=== PATIENT | female | born 1965 | race Caucasian/White ===

== ENCOUNTER 2021-02-28 17:57 | Inpatient (IN) | payer OTHER, SELFPAY ==
--- NOTE | ~2021-02-28 | CT_ITS ---
EXAMINATION: CTA chest PE protocol DATE: 03/01/2021 01:18 INDICATION: Worsening chest pain and shortness of breath, COVID 19 TECHNIQUE: Computed tomography angiography (CTA) of the chest was performed with 100 mL Omnipaque-350 intravenous contrast timed to evaluate the pulmonary arteries. Coronal maximum intensity projection 3D-reconstructions were created by the technologist. The dose-length product (DLP) was 790.21 mGy-cm. Automated exposure control and iterative reconstruction technique were employed. COMPARISON: None. FINDINGS: The pulmonary arteries are well-opacified. Respiratory motion artifact somewhat limits exam ination. No central pulmonary embolism is identified. There are widespread groundglass and airspace o pacities throughout all lung zones. There is no pleural effusion or pneumothorax. No pathologically e nlarged thoracic lymph nodes are identified. The heart size is normal. The left thyroid lobe is surgi eladia absent. There is mild thoracic spondylosis. The gallbladder is surgically absent. IMPRESSION: 1. No pulmonary embolism identified, sensitivity limited by artifact. 2. Diffuse groundglass and airspace opacities in a pattern consistent with COVID 19 pneumonia. Reviewed, dictated and finalized at location B. IMPRESSION: 1. No pulmonary embolism identified, sensitivity limited by artifact. 2. Diffuse groundglass and airspace opacities in a pattern consistent with COVI D 19 pneumonia.
--- NOTE | ~2021-02-28 | XR_ITS ---
XR chest 1V portable 02/28/2021 18:51 Indication: Covid. Shortness of breath and cough. Procedure: AP portable chest Comparison: The No prior studies for comparison. Findings: Heart size is normal. Patchy bilateral airspace disease, compatible with pneumonia. No sign ificant effusion. No pneumothorax. No acute osseous abnormality. Impression: 1: Patchy bilateral airspace disease, compatible with pneumonia. Reviewed, dictated and finalized at location A. Impression: 1: Patchy bilateral airspace disease, compatible with pneumonia.
--- NOTE | 2021-02-28 18:25 | ECG_ITS ---
Measurements Intervals [place] Rate: 92 P: 8 SD: 136 QRS: 1 QRSD: 79 T: -17 QT: 353 QTc: 438 Interpretive Statements SINUS RHYTHM BORDERLINE T WAVE ABNORMALITY- ANT/INF LEADS BORDERLINE ECG Electronically Signed On 02-28-2021 20:56:44 CDT by Andrea Daily D.O.
[2021-02-28 18:26] VITALS: BP 116/63; PULSE 97; RESP 22; TEMP 36.8; O2SAT 94
[2021-02-28 18:46] LABS: Basophils Percent Auto 0.2 % (0.2-1.2); Eosinophils Percent Auto 0.3 % (0-4.4); Hematocrit 41.5 % (37.0-47.0); Hemoglobin 13.8 g/dL (12.0-15.0); Immature Granulocyte Absolute 0.04 K/mm3 (0.00-0.031); Immature Granulocyte Percent A 0.7 % (0-0.5); Lymphocytes Percent Auto 17.9 % (18.3-44.2); Mean Corpuscular HGB Conc 33.3 g/dl (32-36); Mean Corpuscular Hemoglobin 30.3 pg (26-34); Mean Corpuscular Volume 91.2 fl (80-100); Mean Platelet Volume 8.7 fl (7.4-10.4); Monocytes Absolute Auto 0.6 K/mm3 (0.1-0.6); Monocytes Percent Auto 9.9 % (2.6-8.5); Neutrophils Absolute Auto 4.4 K/mm3 (1.3-6.7); Platelet Count Result 234 k/mm3 (150-375); Red Blood Count 4.55 M/mm3 (4.2-5.4); Red Cell Distribution Width 13.4 % (11.5-14.5); White Blood Count 6.2 K/mm3 (4.5-10.0)
[2021-02-28 18:58] LABS: Alanine Aminotransferase 55 U/L (4-35); Albumin Level 3.6 g/dL (3.5-5.1); Alkaline Phosphatase 96 U/L (38-126); Anion Gap 3 mmol/L (8-16); Aspartate Amino Transferase 88 U/L (14-36); Bilirubin,Total 0.6 mg/dL (0.2-1.3); Blood Urea Nitrogen 13 mg/dL (7-17); Calcium 8.3 mg/dL (8.4-10.2); Carbon Dioxide 32 mmol/L (22-30); Chloride 103 mmol/L (98-107); Estimated CRCL calculation 94 ml/min; Estimated Glomerular Filt Rate > 60; Glucose 97 mg/dL (65-110); Potassium 3.3 mmol/L (3.4-5.0); Sodium 138 mmol/L (137-145)
--- NOTE | 2021-02-28 22:54 | ED.SOB ---
HPI - SOB/Dyspnea General Chief Complaint: Shortness of Breath/Dyspnea Stated Complaint: Covid + 02/20 Low o2 sats Time Seen by Provider: 02/28/21 22:08 History of Present Illness HPI Narrative: Patient presents with shortness of breath. Patient reports she has had cough congestion for the past few days. She reports she was tested for Covid and testing positive. The past couple days reported symptoms are getting worse she reports she feels more short of breath and is having diffuse chest pain. Pain is achy, constant, no radiation, no clear aggravating or alleviating factors. Reports her shortness of breath gets worse with attempting to ambulate. Reports she has been checking her oxygen levels at home and she is in the low 90s so she wanted to come to the ER for evaluation. Related Data Home Medications Medication Instructions Recorded Confirmed atorvastatin 10 mg PO DAILY 03/01/21 03/01/21 ergocalciferol (vitamin D2) 50,000 units PO WEEKLY 03/01/21 03/01/21 levothyroxine 137 mcg PO DAILY 03/01/21 03/01/21 loratadine 10 mg PO DAILY 03/01/21 03/01/21 Allergies Allergy/AdvReac Type Severity Reaction Status Date / Time tuberculin, purified protein Allergy Unknown UNCODED Verified 12/06/18 10:52 deriva Review of Systems Review of Systems: CONSTITUTIONAL: Denies fever, chills, or sweats. EYES: Denies visual changes, redness, or discharge. ENT: Denies rhinorrhea, congestion, sore throat, or otalgia. CARDIOVASCULAR: Denies palpitations, or edema. RESPIRATORY: D reports cough and shortness of breath GASTROINTESTINAL: Denies abdominal pain, nausea, vomiting, or diarrhea. GENITOURINARY: Denies dysuria or hematuria. SKIN: Denies rash or itching. MUSCULOSKELETAL: Denies back pain, joint pain, or myalgia. NEUROLOGIC: Denies headache, numbness, dizziness, or weakness. PSYCHIATRIC: Denies anxiety or depression. All systems reviewed & are unremarkable except as noted in HPI and below PMFSH Family History Family History (Updated 03/01/21 @ 06:43 by Suri New RN) Mother Hypothyroid Father Cancer Social History Social History Smoking packs per day: 0.5 Smoking cigarettes per day: 10.0 Smoking status: Current some day smoker Tobacco type: cigarettes Alcohol intake: current Drinks per week: 1 Substance use: never Spiritual care concerns: No Exam Narrative: GENERAL: Well-appearing, well-nourished, and in no acute distress. HEAD: Normocephalic, atraumatic. EYES: PERRLA and EOMI. ENT: Nares clear, no rhinorrhea or epistaxis. Mucous membranes moist. NECK: Supple. No masses. No JVD CHEST: Clear to auscultation. No respiratory distress. No wheezes rales or rhonchi diminished aeration in all lung gill HEART: Regular rate and rhythm. No murmur heard. Normal peripheral pulses. ABDOMEN: Soft, nontender, nondistended, normal active bowel sounds. EXTREMITIES: Normal range of motion. No edema. SKIN: Warm, dry, no rash. NEURO: No focal deficits. Alert and oriented x3. PSYCH: Normal mood and affect. Course Reevaluation(s) Reevaluation #1: Patient is resting comfortably on 3 L of nasal cannula. Labs and imaging reviewed with patient. Given patient's hypoxia requesting hospitalist consultation for admission further management. Patient comfortable with inpatient plan. Date: 03/01/21 Time: 02:22 Vital Signs Vital signs: Vital Signs Temperature 36.8 C 02/28/21 18:26 Pulse Rate 97 02/28/21 18:26 Respiratory Rate 22 H 02/28/21 18:26 Blood Pressure 116/63 02/28/21 18:26 Pulse Oximetry 94 02/28/21 18:26 Temperature 37.3 C 03/01/21 04:40 Pulse Rate 89 03/01/21 04:40 Respiratory Rate 22 H 03/01/21 04:40 Blood Pressure 120/66 03/01/21 04:40 Pulse Oximetry 91 03/01/21 04:40 MDM - SOB/Dyspnea MDM Narrative Medical decision making narrative: Patient presents with cough shortness of breath tested positive for Covi
--- NOTE | 2021-02-28 23:51 | PC.NURSE ---
pt sating between 89-90%. placed pt on 3L of O2 via nasal cannula.
[2021-02-28 23:52] VITALS: BP 119/85; PULSE 99; RESP 26; O2SAT 95
[2021-03-01] VITALS (7 sets, daily range): BP systolic 120–146; BP diastolic 64–88; PULSE 72–89; RESP 18–23; TEMP 36.6–37.4; O2SAT 90–97; BMI 32.8
[2021-03-01] MEDS: KETOROLAC 15 MG/ML VIAL (*BKC) IV PUSH (00:01)
[2021-03-01] MEDS: SODIUM CHLORIDE 0.9% IV 1,000 ML 999 ML IV CONT (00:01)
--- NOTE | 2021-03-01 04:41 | ADMGEN ---
This patient, Ghada Gaffney, was admitted to [facility] Surg Room 315-01. Patient/family oriented to hospital policies and general routines including ID bracelet, bed and alarms, visiting hours, pain management, procedures, bathroom and other care routines, personal items, smoking policy, room service/diet, and visiting hours. Information on how to activate the Rapid Response Team has been discussed. Patient/Family are encouraged to report perceived risks to care and to ask questions if they do not understand what they are told or what they should do.
[2021-03-01] MEDS: SODIUM CHLORIDE 0.9% IV 1,000 ML 125 ML IV CONT (05:54)
--- NOTE | 2021-03-01 09:04 | PM.IMHP ---
H&P: HPI History of Present Illness Date/Time: 03/01/21 09:04 Chief Complaint: Shortness of breath Narrative: This is a very pleasant 56-year-old woman with past medical history of hypothyroidism, hyperlipidemia, and vitamin-D deficiency, who presented to the emergency department last night for evaluation of shortness of breath. This was accompanied by cough and nasal congestion. Reports that her symptoms started on 02/20. She was tested positive on 02/21. She managed her symptoms at home but for the past 2-3 days her symptoms progressed. Certainly with ambulation she was significantly short of breath per report. On presentation to the emergency department she was noted to have a temperature 36.8?, heart rate of 97, respiratory 22, blood pressure 116/63, pulse oximetry was 94%. However did drop to the 80s with ambulation and she was placed on oxygen by nasal cannula. Her blood work showed WBC 6.2, hemoglobin 13.8, platelets 234, sodium 138, potassium 3.3, chloride 103, bicarb 32, anion gap 3, BUN 13, creatinine 0.7, calcium 8.3, AST 80, ALT 55, albumin 3.6. She otherwise reports no recent changes to her health or medications. She does smoke 1 cigarette daily socially. Review of Systems Review of Systems: All systems reviewed & are unremarkable except as noted in HPI and below PMFSH Past Medical History Medical History Hyperlipidemia Hypothyroidism Seasonal allergies Family History Family History Mother Hypothyroid Father Cancer Social History Social History Smoking packs per day: 0.5 Smoking cigarettes per day: 10.0 Smoking status: Current some day smoker Tobacco type: cigarettes Alcohol intake: current Drinks per week: 1 Substance use: never Spiritual care concerns: No Meds Home Medications and Allergies Home Medications Medication Instructions Recorded Confirmed Type atorvastatin 10 mg PO DAILY 03/01/21 03/01/21 History ergocalciferol (vitamin D2) 50,000 units PO WEEKLY 03/01/21 03/01/21 History levothyroxine 137 mcg PO DAILY 03/01/21 03/01/21 History loratadine 10 mg PO DAILY 03/01/21 03/01/21 History Allergies Allergy/AdvReac Type Severity Reaction Status Date / Time tuberculin, purified protein Allergy Unknown UNCODED Verified 12/06/18 10:52 deriva Vital Signs Vital Signs - 24 hr 02/28/21 18:26 02/28/21 23:52 03/01/21 02:33 Temperature 98.2 F Pulse Rate 97 99 87 Respiratory Rate 22 H 26 H 23 H Blood Pressure 116/63 119/85 134/76 Pulse Oximetry 94 95 97 03/01/21 04:11 03/01/21 04:40 03/01/21 08:00 Temperature 99.1 F 97.9 F Pulse Rate 83 89 72 Respiratory Rate 21 H 22 H 20 Blood Pressure 146/88 H 120/66 133/72 Pulse Oximetry 97 91 90 Exam Narrative: Gen: Alert, NAD Abd: Soft, NT, ND Heart: RRR Lungs: Bilateral upper and lower lobes crackles, faint wheezing Ext: No lower extremity edema Skin: No abnormality Eyes: anicteric ENT: MMM H&P: Results Labs Labs: Short CBC 02/28/21 Range/Units 18:39 WBC 6.2 (4.5-10.0) K/mm3 Hgb 13.8 (12.0-15.0) g/dL Hct 41.5 (37.0-47.0) % Plt Count 234 (150-375) k/mm3 BMP 02/28/21 18:39 Sodium 138 Potassium 3.3 L Chloride 103 Carbon Dioxide 32 H BUN 13 Creatinine 0.70 Glucose 97 Calcium 8.3 L Liver Function 02/28/21 Range/Units 18:39 Total Bilirubin 0.6 (0.2-1.3) mg/dL AST 88 H (14-36) U/L ALT 55 H (4-35) U/L Alkaline Phosphatase 96 (38-126) U/L Albumin 3.6 (3.5-5.1) g/dL Assessment and Plan Assessment and plan (1) Acute hypoxemic respiratory failure: Code(s): J96.01 - Acute respiratory failure with hypoxia Status: Acute Assessment and Plan: In the setting of COVID pneumonia. Oxygen supplementation by nasal cannula and wean as tolerat
[2021-03-01] MEDS: DEXAMETHASONE SOD PHOS INJ 4 MG/ML VIAL 6 MG IV PUSH (09:48)
[2021-03-01] MEDS: ACETAMINOPHEN 325 MG TABLET 650 MG PO ×2 (10:12→22:28)
[2021-03-01] MEDS: ENOXAPARIN 40 MG/0.4 ML SYRINGE SUB-Q (10:44)
[2021-03-01] MEDS: ATORVASTATIN 10 MG TABLET PO (10:45)
[2021-03-01] MEDS: LEVOTHYROXINE SODIUM 112 MCG TABLET PO (10:45)
[2021-03-01] MEDS: LORATADINE 10 MG TABLET PO (10:45)
[2021-03-01] MEDS: LEVOTHYROXINE SODIUM 25 MCG TABLET PO (10:45)
[2021-03-01] MEDS: SODIUM CHLORIDE 0.9% IV 1,000 ML 75 ML IV CONT (17:41)
[2021-03-01] MEDS: CALCIUM CARBONATE (TUMS) 500 MG (200 MG ELEMENTAL) PO (22:28)
[2021-03-02] VITALS: BP 119/59; PULSE 83; RESP 20; TEMP 36.8; O2SAT 94
[2021-03-02 04:00] VITALS: BP 115/56; PULSE 73; RESP 22; TEMP 36.7; O2SAT 92
[2021-03-02] MEDS: LEVOTHYROXINE SODIUM 25 MCG TABLET PO (05:55)
[2021-03-02] MEDS: LEVOTHYROXINE SODIUM 112 MCG TABLET PO (05:56)
[2021-03-02] MEDS: SODIUM CHLORIDE 0.9% IV 1,000 ML 75 ML IV CONT (05:56)
[2021-03-02 07:07] LABS: Alanine Aminotransferase 34 U/L (4-35); Albumin Level 3.1 g/dL (3.5-5.1); Alkaline Phosphatase 74 U/L (38-126); Aspartate Amino Transferase 40 U/L (14-36); Bilirubin,Total 0.6 mg/dL (0.2-1.3)
[2021-03-02 07:15] LABS: Anion Gap 7 mmol/L (8-16); Blood Urea Nitrogen 17 mg/dL (7-17); Calcium 8.7 mg/dL (8.4-10.2); Carbon Dioxide 23 mmol/L (22-30); Chloride 110 mmol/L (98-107); Estimated CRCL calculation 127 ml/min; Estimated Glomerular Filt Rate > 60; Glucose 140 mg/dL (65-110); Potassium 3.5 mmol/L (3.4-5.0); Sodium 140 mmol/L (137-145)
[2021-03-02 08:00] VITALS: BP 121/82; PULSE 73; RESP 24; TEMP 37.1; O2SAT 91
[2021-03-02] MEDS: DEXAMETHASONE SOD PHOS INJ 4 MG/ML VIAL 6 MG IV PUSH (08:57)
[2021-03-02] MEDS: LORATADINE 10 MG TABLET PO (08:57)
[2021-03-02] MEDS: ENOXAPARIN 40 MG/0.4 ML SYRINGE SUB-Q (08:58)
[2021-03-02] MEDS: ATORVASTATIN 10 MG TABLET PO (08:58)
[2021-03-02] MEDS: PANTOPRAZOLE 40 MG TABLET PO ×2 (10:02→22:37)
[2021-03-02] MEDS: guaiFENesin 200 MG/10 ML UDC PO ×3 (10:03→22:37)
--- NOTE | 2021-03-02 11:20 | PM.IMPN ---
Progress Note: A&P Assessment and Plan (1) Acute hypoxemic respiratory failure: Code(s): J96.01 - Acute respiratory failure with hypoxia Status: Acute Assessment and Plan: In the setting of COVID pneumonia. Oxygen supplementation by nasal cannula and wean as tolerated CTA chest 03/01 no evidence of pulmonary embolism, diffuse ground-glass and airspace opacities and pattern consistent with COVID pneumonia Management of COVID as below Antitussives (2) COVID-19: Code(s): U07.1 - COVID-19 Status: Acute Assessment and Plan: Oxygen supplementation by nasal cannula and wean as tolerated COVID Isolation/infection precautions Dexamethasone 03/01- Given symptoms for 10 days, in addition to elevated LFTs, will not initiate remdesivir Monitor respiratory status closely Given she had some wheezing, albuterol inhaler as needed She has not been vaccinated for COVID previously (3) Hypothyroidism: Code(s): E03.9 - Hypothyroidism, unspecified Status: Acute Assessment and Plan: Continue home levothyroxine (4) Hyperlipidemia: Code(s): E78.5 - Hyperlipidemia, unspecified Status: Acute Assessment and Plan: Continue statin (5) Nicotine dependence: Code(s): F17.200 - Nicotine dependence, unspecified, uncomplicated Status: Acute Assessment and Plan: Smoking cessation discussed in detail. Subjective Date/time seen: 03/02/21 11:20 Oxygen requirement is stable at 2 liters/minute, however she has been having fairly rigorous cough that is frequent. Otherwise hemodynamically stable and afebrile. Review of Systems Review of Systems: All systems reviewed & are unremarkable except as noted in HPI and below Exam Narrative: Gen: Alert, NAD Abd: Soft, NT, ND Heart: RRR Lungs: Faint diffuse wheezing Ext: No lower extremity edema Objective Data Vital Signs Vital Signs: Vital Signs - 24 hr 03/01/21 12:00 03/01/21 16:00 03/01/21 20:00 Temperature 98.3 F 98.2 F 99.3 F Pulse Rate 89 86 87 Respiratory Rate 20 18 20 Blood Pressure 131/87 134/78 120/64 Pulse Oximetry 90 90 92 03/02/21 00:00 03/02/21 04:00 03/02/21 08:00 Temperature 98.3 F 98.0 F 98.7 F Pulse Rate 83 73 73 Respiratory Rate 20 22 H 24 H Blood Pressure 119/59 L 115/56 L 121/82 Pulse Oximetry 94 92 91 Intake/Output Intake/Output: Intake & Output 02/27/21 02/28/21 03/01/21 03/02/21 23:59 23:59 23:59 23:59 Intake Total 3690 1300 Output Total 100 Balance 3590 1300 Meds/Results Medications: Active Medications Generic Name Dose Route Start Last Admin Trade Name Freq PRN Reason Stop Dose Admin Acetaminophen 650 mg 03/01/21 09:45 03/01/21 22:28 Acetaminophen 325 Mg Tablet PO 650 mg Q4H PRN Administration Headache Albuterol 2 puff 03/01/21 09:13 Albuterol Sulfate (*Sp) Aerosol 1 Puff INHALATION Q6HRT PRN Shortness Of Breath Atorvastatin Calcium 10 mg 03/01/21 09:00 03/02/21 08:58 Atorvastatin 10 Mg Tablet PO 10 mg DAILY JUN Administration Benzonatate 200 mg 03/02/21 13:00 Benzonatate 100 Mg Capsule PO TID JUN Calcium Carbonate 200 mg 03/01/21 21:53 03/01/21 22:28 Calcium Carbonate (Tums) 500 Mg (200 Mg Elemental) PO 200 mg Q6H PRN Administration Indigestion Dexamethasone Sodium Phosphate 6 mg 03/01/21 09:00 03/02/21 08:57 Dexamethasone Sod Phos Inj 4 Mg/Ml Vial IV PUSH 03/10/21 09:01 6 mg DAILY JUN Administration Enoxaparin Sodium 40 mg 03/01/21 09:55 03/02/21 08:58 Enoxaparin 40 Mg/0.4 Ml Syringe SUB-Q 40 mg DAILY JUN Administration Guaifenesin 200 mg 03/02/21 09:15 03/02/21 10:03 Guaifenesin 200 Mg/10 Ml Udc PO 200 mg Q4H PRN Administration Cough Sodium Chloride 1,000 mls @ 75 mls/hr 03/01/21 03:10 03/02/21 05:56 Normal Saline Iv IV CONT 75 mls/hr .[id number] JUN Administration Levothyroxine Sodium 112 mcg 03/01/21 10:00 03/02/21
[2021-03-02 12:00] VITALS: BP 122/70; PULSE 87; RESP 24; TEMP 36.2; O2SAT 92
[2021-03-02] MEDS: BENZONATATE 100 MG CAPSULE 200 MG PO ×2 (12:37→17:10)
[2021-03-02 16:00] VITALS: BP 132/76; PULSE 86; RESP 24; TEMP 36.8; O2SAT 90
[2021-03-02 20:50] VITALS: BP 130/87; PULSE 77; RESP 18; TEMP 36.8; O2SAT 90
[2021-03-03] VITALS: BP 117/66; PULSE 67; RESP 18; TEMP 36.9; O2SAT 93
[2021-03-03 06:00] VITALS: BP 118/70; PULSE 67; RESP 16; TEMP 36.2; O2SAT 94
[2021-03-03] MEDS: LEVOTHYROXINE SODIUM 25 MCG TABLET PO (06:07)
[2021-03-03] MEDS: LEVOTHYROXINE SODIUM 112 MCG TABLET PO (06:07)
[2021-03-03 06:40] LABS: Anion Gap 7 mmol/L (8-16); Blood Urea Nitrogen 17 mg/dL (7-17); Calcium 8.4 mg/dL (8.4-10.2); Carbon Dioxide 26 mmol/L (22-30); Chloride 109 mmol/L (98-107); Estimated CRCL calculation 108 ml/min; Estimated Glomerular Filt Rate > 60; Glucose 122 mg/dL (65-110); Potassium 3.6 mmol/L (3.4-5.0); Sodium 142 mmol/L (137-145)
[2021-03-03 08:00] VITALS: BP 128/81; PULSE 62; RESP 18; TEMP 36.7; O2SAT 96
--- NOTE | 2021-03-03 08:55 | PM.IMPN ---
Progress Note: A&P Assessment and Plan (1) Acute hypoxemic respiratory failure: Code(s): J96.01 - Acute respiratory failure with hypoxia Status: Acute Assessment and Plan: In the setting of COVID pneumonia. Oxygen supplementation by nasal cannula and wean as tolerated CTA chest 03/01 no evidence of pulmonary embolism, diffuse ground-glass and airspace opacities and pattern consistent with COVID pneumonia Management of COVID as below Antitussives (2) COVID-19: Code(s): U07.1 - COVID-19 Status: Acute Assessment and Plan: Oxygen supplementation by nasal cannula and wean as tolerated COVID Isolation/infection precautions Dexamethasone 03/01- Given symptoms for 10 days, in addition to elevated LFTs, will not initiate remdesivir Monitor respiratory status closely Given she had some wheezing, albuterol inhaler as needed She has not been vaccinated for COVID previously (3) Hypothyroidism: Code(s): E03.9 - Hypothyroidism, unspecified Status: Acute Assessment and Plan: Continue home levothyroxine (4) Hyperlipidemia: Code(s): E78.5 - Hyperlipidemia, unspecified Status: Acute Assessment and Plan: Continue statin (5) Nicotine dependence: Code(s): F17.200 - Nicotine dependence, unspecified, uncomplicated Status: Acute Assessment and Plan: Smoking cessation discussed in detail. Subjective Date/time seen: 03/03/21 08:55 Cough is intermittent, shortness of breath persistent but improved, currently on 1 L of oxygen by nasal cannula. Feels soreness in her throat and upper airways. Hemodynamically stable. Afebrile. Review of Systems Review of Systems: All systems reviewed & are unremarkable except as noted in HPI and below Exam Narrative: Gen: Alert, NAD Abd: Soft, NT, ND Heart: RRR Lungs: CTAB Ext: No lower extremity edema Objective Data Vital Signs Vital Signs: Vital Signs - 24 hr 03/02/21 12:00 03/02/21 16:00 03/02/21 20:50 Temperature 97.1 F L 98.2 F 98.3 F Pulse Rate 87 86 77 Respiratory Rate 24 H 24 H 18 Blood Pressure 122/70 132/76 130/87 Pulse Oximetry 92 90 90 03/03/21 00:00 03/03/21 06:00 Temperature 98.4 F 97.2 F L Pulse Rate 67 67 Respiratory Rate 18 16 Blood Pressure 117/66 118/70 Pulse Oximetry 93 94 Intake/Output Intake/Output: Intake & Output 02/28/21 03/01/21 03/02/21 03/03/21 23:59 23:59 23:59 23:59 Intake Total 3690 3390 400 Output Total 100 Balance 3590 3390 400 Meds/Results Medications: Active Medications Generic Name Dose Route Start Last Admin Trade Name Freq PRN Reason Stop Dose Admin Acetaminophen 650 mg 03/01/21 09:45 03/01/21 22:28 Acetaminophen 325 Mg Tablet PO 650 mg Q4H PRN Administration Headache Albuterol 2 puff 03/01/21 09:13 Albuterol Sulfate (*Sp) Aerosol 1 Puff INHALATION Q6HRT PRN Shortness Of Breath Atorvastatin Calcium 10 mg 03/01/21 09:00 03/02/21 08:58 Atorvastatin 10 Mg Tablet PO 10 mg DAILY JUN Administration Benzonatate 200 mg 03/02/21 13:00 03/02/21 17:10 Benzonatate 100 Mg Capsule PO 200 mg TID JUN Administration Calcium Carbonate 200 mg 03/01/21 21:53 03/01/21 22:28 Calcium Carbonate (Tums) 500 Mg (200 Mg Elemental) PO 200 mg Q6H PRN Administration Indigestion Dexamethasone Sodium Phosphate 6 mg 03/01/21 09:00 03/02/21 08:57 Dexamethasone Sod Phos Inj 4 Mg/Ml Vial IV PUSH 03/10/21 09:01 6 mg DAILY JUN Administration Enoxaparin Sodium 40 mg 03/01/21 09:55 03/02/21 08:58 Enoxaparin 40 Mg/0.4 Ml Syringe SUB-Q 40 mg DAILY JUN Administration Guaifenesin 200 mg 03/02/21 09:15 03/02/21 22:37 Guaifenesin 200 Mg/10 Ml Udc PO 200 mg Q4H PRN Administration Cough Levothyroxine Sodium 112 mcg 03/01/21 10:00 03/03/21 06:07 Levothyroxine Sodium 112 Mcg Tablet PO 112 mcg DAILY@0630 JUN Administration Levothyroxine Sodium 25 mcg 0
[2021-03-03] MEDS: DEXAMETHASONE SOD PHOS INJ 4 MG/ML VIAL 6 MG IV PUSH (10:48)
[2021-03-03] MEDS: LORATADINE 10 MG TABLET PO (10:49)
[2021-03-03] MEDS: ATORVASTATIN 10 MG TABLET PO (10:49)
[2021-03-03] MEDS: PANTOPRAZOLE 40 MG TABLET PO (10:49)
[2021-03-03] MEDS: ENOXAPARIN 40 MG/0.4 ML SYRINGE SUB-Q (10:49)
[2021-03-03] MEDS: BENZONATATE 100 MG CAPSULE 200 MG PO ×3 (10:49→18:09)
[2021-03-03] MEDS: guaiFENesin 200 MG/10 ML UDC PO ×2 (10:50→18:10)
[2021-03-03 12:00] VITALS: BP 114/71; PULSE 70; RESP 18; TEMP 36.7; O2SAT 94
[2021-03-03 16:00] VITALS: BP 115/73; PULSE 72; RESP 20; TEMP 36.6; O2SAT 95
[2021-03-03 20:00] VITALS: BP 135/92; PULSE 65; RESP 18; TEMP 36.7; O2SAT 92
[2021-03-04] VITALS (9 sets, daily range): BP systolic 126–135; BP diastolic 63–82; PULSE 55–68; RESP 18–20; TEMP 36.2–36.9; O2SAT 91–95
[2021-03-04 06:33] LABS: Estimated CRCL calculation 108 ml/min; Estimated Glomerular Filt Rate > 60
[2021-03-04] MEDS: LEVOTHYROXINE SODIUM 25 MCG TABLET PO (07:00)
[2021-03-04] MEDS: LEVOTHYROXINE SODIUM 112 MCG TABLET PO (07:00)
--- NOTE | 2021-03-04 09:35 | PM.IMPN ---
Progress Note: A&P Assessment and Plan (1) Acute hypoxemic respiratory failure: Code(s): J96.01 - Acute respiratory failure with hypoxia Status: Acute Assessment and Plan: In the setting of COVID pneumonia. Oxygen supplementation by nasal cannula and wean as tolerated CTA chest 03/01 no evidence of pulmonary embolism, diffuse ground-glass and airspace opacities and pattern consistent with COVID pneumonia Management of COVID as below Antitussives (2) COVID-19: Code(s): U07.1 - COVID-19 Status: Acute Assessment and Plan: Oxygen supplementation by nasal cannula and wean as tolerated COVID Isolation/infection precautions Dexamethasone 03/01- Given symptoms for 10 days, in addition to elevated LFTs, will not initiate remdesivir Monitor respiratory status closely Given she had some wheezing, albuterol inhaler as needed She has not been vaccinated for COVID (3) Hypothyroidism: Code(s): E03.9 - Hypothyroidism, unspecified Status: Acute Assessment and Plan: Continue home levothyroxine (4) Hyperlipidemia: Code(s): E78.5 - Hyperlipidemia, unspecified Status: Acute Assessment and Plan: Continue statin (5) Nicotine dependence: Code(s): F17.200 - Nicotine dependence, unspecified, uncomplicated Status: Acute Assessment and Plan: Smoking cessation discussed in detail. Subjective Date/time seen: 03/04/21 09:35 She reports persistent cough, slightly improved. Breathing is about the same. She is on 2 L of oxygen by nasal cannula. Hemodynamically stable. Afebrile. Exam Narrative: Gen: Alert, NAD Abd: Soft, NT, ND Heart: RRR Lungs: CTAB Ext: No lower extremity edema Objective Data Vital Signs Vital Signs: Vital Signs - 24 hr 03/03/21 12:00 03/03/21 16:00 03/03/21 20:00 Temperature 98.0 F 97.9 F 98.1 F Pulse Rate 70 72 65 Respiratory Rate 18 20 18 Blood Pressure 114/71 115/73 135/92 H Pulse Oximetry 94 95 92 03/04/21 00:00 03/04/21 04:00 03/04/21 08:00 Temperature 97.9 F 97.1 F L 97.8 F Pulse Rate 64 60 60 Respiratory Rate 18 18 18 Blood Pressure 126/82 135/74 133/81 Pulse Oximetry 91 95 93 Intake/Output Intake/Output: Intake & Output 03/01/21 03/02/21 03/03/21 03/04/21 23:59 23:59 23:59 23:59 Intake Total 3690 3390 1860 200 Output Total 100 Balance 3590 3390 1860 200 Meds/Results Medications: Active Medications Generic Name Dose Route Start Last Admin Trade Name Freq PRN Reason Stop Dose Admin Acetaminophen 650 mg 03/01/21 09:45 03/01/21 22:28 Acetaminophen 325 Mg Tablet PO 650 mg Q4H PRN Administration Headache Albuterol 2 puff 03/01/21 09:13 Albuterol Sulfate (*Sp) Aerosol 1 Puff INHALATION Q6HRT PRN Shortness Of Breath Atorvastatin Calcium 10 mg 03/01/21 09:00 03/03/21 10:49 Atorvastatin 10 Mg Tablet PO 10 mg DAILY JUN Administration Benzonatate 200 mg 03/02/21 13:00 03/03/21 18:09 Benzonatate 100 Mg Capsule PO 200 mg TID JUN Administration Calcium Carbonate 200 mg 03/01/21 21:53 03/01/21 22:28 Calcium Carbonate (Tums) 500 Mg (200 Mg Elemental) PO 200 mg Q6H PRN Administration Indigestion Dexamethasone Sodium Phosphate 6 mg 03/01/21 09:00 03/03/21 10:48 Dexamethasone Sod Phos Inj 4 Mg/Ml Vial IV PUSH 03/10/21 09:01 6 mg DAILY JUN Administration Enoxaparin Sodium 40 mg 03/01/21 09:55 03/03/21 10:49 Enoxaparin 40 Mg/0.4 Ml Syringe SUB-Q 40 mg DAILY JUN Administration Guaifenesin 200 mg 03/02/21 09:15 03/03/21 18:10 Guaifenesin 200 Mg/10 Ml Udc PO 200 mg Q4H PRN Administration Cough Levothyroxine Sodium 112 mcg 03/01/21 10:00 03/04/21 07:00 Levothyroxine Sodium 112 Mcg Tablet PO 112 mcg DAILY@0630 JUN Administration Levothyroxine Sodium 25 mcg 03/01/21 10:05 03/04/21 07:00 Levothyroxine Sodium 25 Mcg Tablet PO 25 mcg DAILY@0630 JUN Administration Martha
[2021-03-04] MEDS: guaiFENesin 200 MG/10 ML UDC PO (10:19)
[2021-03-04] MEDS: DEXAMETHASONE SOD PHOS INJ 4 MG/ML VIAL 6 MG IV PUSH (10:19)
[2021-03-04] MEDS: LORATADINE 10 MG TABLET PO (10:20)
[2021-03-04] MEDS: PANTOPRAZOLE 40 MG TABLET PO (10:20)
[2021-03-04] MEDS: BENZONATATE 100 MG CAPSULE 200 MG PO ×3 (10:20→17:23)
[2021-03-04] MEDS: ATORVASTATIN 10 MG TABLET PO (10:20)
[2021-03-04] MEDS: ENOXAPARIN 40 MG/0.4 ML SYRINGE SUB-Q (10:20)
[2021-03-04] MEDS: guaiFENesin 12 HR 600 MG TABCR PO (15:53)
[2021-03-05] VITALS: BP 132/69; PULSE 58; RESP 20; TEMP 37.1; O2SAT 94
[2021-03-05 04:00] VITALS: BP 144/89; PULSE 57; RESP 20; TEMP 37; O2SAT 93
[2021-03-05] MEDS: LEVOTHYROXINE SODIUM 112 MCG TABLET PO (06:50)
[2021-03-05] MEDS: LEVOTHYROXINE SODIUM 25 MCG TABLET PO (06:50)
[2021-03-05 07:31] LABS: Estimated CRCL calculation 108 ml/min; Estimated Glomerular Filt Rate > 60
[2021-03-05 08:00] VITALS: BP 139/89; PULSE 59; RESP 18; TEMP 36.5; O2SAT 94
[2021-03-05] MEDS: ENOXAPARIN 40 MG/0.4 ML SYRINGE SUB-Q (08:26)
[2021-03-05] MEDS: DEXAMETHASONE SOD PHOS INJ 4 MG/ML VIAL 6 MG IV PUSH (08:26)
[2021-03-05] MEDS: LORATADINE 10 MG TABLET PO (08:27)
[2021-03-05] MEDS: BENZONATATE 100 MG CAPSULE 200 MG PO (08:27)
[2021-03-05] MEDS: ATORVASTATIN 10 MG TABLET PO (08:27)
[2021-03-05] MEDS: PANTOPRAZOLE 40 MG TABLET PO (08:28)
[2021-03-05] MEDS: guaiFENesin 200 MG/10 ML UDC PO (08:28)
--- NOTE | 2021-03-05 10:34 | PM.IMPN ---
Progress Note: A&P Assessment and Plan (1) Acute hypoxemic respiratory failure: Code(s): J96.01 - Acute respiratory failure with hypoxia Status: Acute Assessment and Plan: In the setting of COVID pneumonia. Oxygen supplementation by nasal cannula and wean as tolerated CTA chest 03/01 no evidence of pulmonary embolism, diffuse ground-glass and airspace opacities and pattern consistent with COVID pneumonia Management of COVID as below Antitussives (2) COVID-19: Code(s): U07.1 - COVID-19 Status: Acute Assessment and Plan: Day 5 dexamethasone holding remdesivir in setting of >10 days since s/x onset and transaminitis Oxygen supplementation by nasal cannula and wean as tolerated COVID Isolation/infection precautions Given she had some wheezing, albuterol inhaler as needed She has not been vaccinated for COVID (3) Hypothyroidism: Code(s): E03.9 - Hypothyroidism, unspecified Status: Acute Assessment and Plan: Continue home levothyroxine (4) Hyperlipidemia: Code(s): E78.5 - Hyperlipidemia, unspecified Status: Acute Assessment and Plan: Continue statin (5) Nicotine dependence: Code(s): F17.200 - Nicotine dependence, unspecified, uncomplicated Status: Acute Assessment and Plan: Smoking cessation discussed in detail. Additional Plan Code status: Full code DVT prophylaxis: Enoxaparin continue steroids, attempt to wean off O2 repeat labs today Time Spent With Patient Time with patient: less than 15 minutes Subjective Date/time seen: 03/05/21 10:34 no acute medical complaints Review of Systems Review of Systems: All systems reviewed & are unremarkable except as noted in HPI and below Exam Const: General: no acute distress Neck: Neck: no JVD Resp: Other: require 2L NC to breathe comfortably Cardio: Rate: regular rate Rhythm: regular rhythm GI: GI Palp: Yes Soft to palpation and No Tenderness to palpation present (GI) Objective Data Vital Signs Vital Signs: Vital Signs - 24 hr 03/04/21 12:00 03/04/21 15:30 03/04/21 16:00 Temperature 98.4 F 97.8 F Pulse Rate 55 L 68 Respiratory Rate 18 18 Blood Pressure 126/63 131/80 Pulse Oximetry 95 93 92 03/04/21 17:30 03/04/21 20:00 03/05/21 00:00 Temperature 98.1 F 98.7 F Pulse Rate 66 58 L Respiratory Rate 20 20 Blood Pressure 133/81 132/69 Pulse Oximetry 94 93 94 03/05/21 04:00 03/05/21 08:00 Temperature 98.6 F 97.7 F Pulse Rate 57 L 59 L Respiratory Rate 20 18 Blood Pressure 144/89 H 139/89 Pulse Oximetry 93 94 Intake/Output Intake/Output: Intake & Output 03/02/21 03/03/21 03/04/21 03/05/21 23:59 23:59 23:59 23:59 Intake Total 3390 1860 1820 810 Balance 3390 1860 1820 810 Meds/Results Medications: Active Medications Generic Name Dose Route Start Last Admin Trade Name Freq PRN Reason Stop Dose Admin Acetaminophen 650 mg 03/01/21 09:45 03/01/21 22:28 Acetaminophen 325 Mg Tablet PO 650 mg Q4H PRN Administration Headache Albuterol 2 puff 03/01/21 09:13 Albuterol Sulfate (*Sp) Aerosol 1 Puff INHALATION Q6HRT PRN Shortness Of Breath Atorvastatin Calcium 10 mg 03/01/21 09:00 03/05/21 08:27 Atorvastatin 10 Mg Tablet PO 10 mg DAILY JUN Administration Benzonatate 200 mg 03/02/21 13:00 03/05/21 08:27 Benzonatate 100 Mg Capsule PO 200 mg TID JUN Administration Calcium Carbonate 200 mg 03/01/21 21:53 03/01/21 22:28 Calcium Carbonate (Tums) 500 Mg (200 Mg Elemental) PO 200 mg Q6H PRN Administration Indigestion Dexamethasone Sodium Phosphate 6 mg 03/01/21 09:00 03/05/21 08:26 Dexamethasone Sod Phos Inj 4 Mg/Ml Vial IV PUSH 03/10/21 09:01 6 mg DAILY JUN Administration Enoxaparin Sodium 40 mg 03/01/21 09:55 03/05/21 08:26 Enoxaparin 40 Mg/0.4 Ml Syringe SUB-Q 40 mg DAILY JUN Administration Guaifenesin 200 mg 03/02/21 09:15 03/05/21 08:28 Gu
[2021-03-05 10:50] LABS: Basophils Percent Auto 0.3 % (0.2-1.2); Hematocrit 39.2 % (37.0-47.0); Hemoglobin 12.9 g/dL (12.0-15.0); Immature Granulocyte Absolute 0.48 K/mm3 (0.00-0.031); Immature Granulocyte Percent A 4.4 % (0-0.5); Lymphocytes Absolute Auto 1.95 K/mm3 (0.9-3.2); Mean Corpuscular HGB Conc 32.9 g/dl (32-36); Mean Corpuscular Hemoglobin 30.4 pg (26-34); Mean Corpuscular Volume 92.2 fl (80-100); Mean Platelet Volume 8.7 fl (7.4-10.4); Monocytes Absolute Auto 0.9 K/mm3 (0.1-0.6); Monocytes Percent Auto 8.4 % (2.6-8.5); Neutrophils Absolute Auto 7.5 K/mm3 (1.3-6.7); Neutrophils Percent Auto 68.9 % (45.5-73.1); Nucleated Red Blood Cells Perc 0.4 % (0.0-0.2); Platelet Count Result 488 k/mm3 (150-375); Red Blood Count 4.25 M/mm3 (4.2-5.4); Red Cell Distribution Width 13.2 % (11.5-14.5); White Blood Count 10.8 K/mm3 (4.5-10.0)
[2021-03-05 11:01] LABS: Alanine Aminotransferase 104 U/L (4-35); Albumin Level 3.3 g/dL (3.5-5.1); Alkaline Phosphatase 72 U/L (38-126); Anion Gap 10 mmol/L (8-16); Aspartate Amino Transferase 60 U/L (14-36); Bilirubin,Total 0.5 mg/dL (0.2-1.3); Blood Urea Nitrogen 16 mg/dL (7-17); Calcium 8.9 mg/dL (8.4-10.2); Carbon Dioxide 26 mmol/L (22-30); Chloride 107 mmol/L (98-107); Estimated CRCL calculation 108 ml/min; Estimated Glomerular Filt Rate > 60; Glucose 87 mg/dL (65-110); Potassium 4.3 mmol/L (3.4-5.0); Sodium 143 mmol/L (137-145)
--- NOTE | 2021-03-18 18:42 | PM.DS ---
DS: Admitting Diagnosis Discharge Date 03/05/21 Admitting Diagnosis COVID pneumonia DS: Discharge Diagnosis Discharge Diagnosis (1) COVID-19: Code(s): U07.1 - COVID-19 Status: Acute DS: Summary Hospital Course Hospital Course: patient is a 56-year-old lady with hypothyroidism dyslipidemia and GERD presenting with respiratory failure. Found to have COVID pneumonia. However since it was greater than 10 days since symptoms began, she was outside of the window to treat with remdesivir. Did complete 5 days of steroids, patient respiratory symptoms feeling much better. The patient deemed safe to discharge home, with appropriate social distancing guidelines, and return if symptoms return or worsen. Status at Discharge Overall status at discharge: patient is progressing back to baseline Time Spent with Patient Time attestation: Total time spent providing and/or coordinating discharge services: Time spent: Less than 30 minutes Exam Const: General: no acute distress Neck: Neck: no JVD Resp: Effort & Inspection: normal respiratory effort Auscultation: clear to auscultation bilaterally Cardio: Rate: regular rate Rhythm: regular rhythm GI: GI Palp: Yes Soft to palpation and No Tenderness to palpation present (GI) Discharge Plan Discharge Attending physician on discharge: Josesito Mayo Consulting providers: Lamont aLu ; Errol Rapp ; Andrea Daily Discharging Clinician: Josesito Mayo Patient Disposition: Home, Self-Care Activity: may shower and as tolerated Diet: heart healthy, low cholesterol and low fat Patient Instructions: Antibiotic Form, How to Stop Smoking (DC), COVID-19 (Coronavirus Disease 2019) (DC), COVID-19 and Chronic Health Conditions (DC) Stand Alone Forms: General Discharge Information Follow-up/Referrals: Luisa,Flakito Escamilla MD [Primary Care Provider] - Call for Appointment Discharge Medications: Continued levothyroxine 137 mcg Tablet 137 mcg PO DAILY RF: 0 atorvastatin 10 mg Tablet 10 mg PO DAILY RF: 0 loratadine 10 mg Tablet 10 mg PO DAILY RF: 0 ergocalciferol (vitamin D2) 50,000 units PO WEEKLY RF: 0 omeprazole 20 mg Capsule,Delayed Release(Dr/Ec) 20 mg PO DAILY RF: 0 Date of admission: 03/02/21 10:00 Primary Care Provider: Luisa,Runda A. Admitting Provider: Lenny Frank Attending physician on admission: Zachary Lopes Condition: Guarded Prognosis
== END 2021-03-05 12:30 | disposition home or self-care (01) | DRG 177 ==
LOC: ANHED 03-01 02:54 → ANH3MEDSUR 03-01 04:03
PROVIDERS: Family Medicine; Internal Medicine; Admitting Provider Internal Medicine; Emergency Provider Emergency Medicine; PCP Family Medicine; Visit Provider Internal Medicine Nephrology
DX: U07.1 COVID-19 (principal); J12.82 Pneumonia due to coronavirus disease 2019; J96.01 Acute respiratory failure with hypoxia; R74.01 Elevation of levels of liver transaminase levels; F17.210 Nicotine dependence, cigarettes, uncomplicated; E03.9 Hypothyroidism, unspecified; E78.5 Hyperlipidemia, unspecified; E55.9 Vitamin D deficiency, unspecified; K21.9 Gastro-esophageal reflux disease without esophagitis; Z79.899 Other long term (current) drug therapy
CPT/HCPCS: 36415; 71045; 71275; 80048; 80053; 80076; 82565; 85025; 93005; 96361; 96365; 96372; 96374; 96375; 99285; A9270; G0378; J0131; J1100; J1650; J1885; J7030; Q9967

== ENCOUNTER → 2021-12-27 12:14 | Outpatient (CLI) | payer OTHER, SELFPAY ==
--- NOTE | ~2021-12-27 | DEXA_ITS ---
Bone Density Report Name: CAL RUTLEDGE Age: 56 Sex: Female Ethnicity: White Date of : 1965 Indication: postmenopausal; screening for osteoporosis; height loss; inflammatory bowel disease; hysterectomy; Referring Provider: FRANCO GUILLERMO Study: Bone densitometry was performed. Exam Date: December 27, 2021 Accession number: [id number] Bone Density: Region BMD T-score Z-score Classification AP Spine (L1-L4) 0.934 -1.0 0.0 Normal Femoral Neck (Left) 0.794 -0.5 0.5 Normal Total Hip (Left) 1.022 0.7 1.3 Normal Femoral Neck (Right) 0.799 -0.4 0.6 Normal Total Hip (Right) 0.898 -0.4 0.3 Normal Total Hip Mean 0.960 0.2 0.8 Normal World Health Organization criteria for BMD impression classify patients as: Normal (T-score at or above -1.0), Osteopenia (T-score between -1.0 and -2.5), or Osteoporosis (T-score at or below -2.5). 10-year Fracture Risk: FRAX not reported because: All T-scores for Spine Total, Hip Total, Femoral Neck at or above -1.0 Previous Exams: Region Exam Age BMD T-score BMD Change BMD Change Date g/cm2 vs Baseline vs Previous AP Spine(L1-L4) 12/27/2021 56 0.934 -1.0 -0.055 -0.055 01/11/2019 53 0.989 -0.5 Total Hip(Left) 12/27/2021 56 1.022 0.7 -0.005 -0.005 01/11/2019 53 1.027 0.7 Total Hip(Right) 12/27/2021 56 0.898 -0.4 -0.080 -0.080 01/11/2019 53 0.978 0.3 *Denotes significance at 95% confidence level, LSC for AP Spine = 0.022 g/cm2, LSC for Total Hip = 0.027 g/cm2 Clinical Information Provided by Patient: Smokes Has the following medical conditions: Inflammatory bowel diseases, Hysterectomy Patient maximum height was 67.5 Menopause Age: 41 No regular weight bearing exercise Does not regularly consume dairy products Drinks caffeinated beverages Onset of menses at age 14 Number of children 2 Impression: The patient has normal bone mass. The patient has risk factors, including: smoking. No significant bone loss was observed. Discussion: BONE DENSITY IS ABOVE THE MINIMUM DESIRABLE LEVEL AT ALL SKELETAL SITES TESTED. This patient?s bone mineral density is above the minimum desirable level (T-score -1.0 or better) at all sites measured. The patient should follow a healthful lifestyle (good nutrition with adequate calcium and vitamin D, and appropriate weight-bearing exercise). Follow-Up: Consider repeating this study in 5 years or sooner
== END ==
PROVIDERS: PCP Family Medicine Sports Medicine; Visit Provider Obstetrics & Gynecology Gynecology
DX: Z78.0 Asymptomatic menopausal state (principal)
CPT/HCPCS: 77080